=== PATIENT | male | born 1975 | race Caucasian/White ===

== ENCOUNTER 2018-02-07 17:27 | Emergency (ER) | payer OTHER ==
[~2018-02-07] VITALS: Ht 185.4 cm; Wt 70.3 kg
[~2018-02-07 17:27] MED LIST: ADVAIRDISKUS; PROVENTIL HFA6.7 G1; ZOFRAN ODT4 MG PO
[2018-02-07 20:39] LABS: ABSOLUTE NEUTROPHILS 7.6 thou/uL (1.4-8.2); BASOPHILS 0.1 % (0.0-2.0); HEMATOCRIT 43.5 % (42.0-52.0); LYMPHOCYTES 5.2 % (24.0-44.0); MCH 31.5 pg (26.0-34.0); MCHC 34.4 g/dL (28.0-37.0); MCV 91.6 fL (80.0-100.0); MONOCYTES 6.6 % (1.0-8.0); PLATELET COUNT 197 thou/uL (150-400); POLYS 88.1 % (36.0-66.0); RBC 4.75 mil/uL (4.50-6.00); RDW 12.8 % (10.5-14.5); WBC 8.6 thou/uL (4.0-11.0)
[2018-02-07] MEDS ORDERED: VENTOLIN HFA 1818 GM INH (20:44)
[2018-02-07] MEDS ORDERED: MEDROLDOSEPACK PO (20:44)
[2018-02-07 20:48] LABS: CREATININE 1.1 mg/dL (0.7-1.3)
[2018-02-07 20:50] LABS: POTASSIUM 2.9 mmol/L (3.5-5.1)
[2018-02-07 21:11] VITALS: BP 129/65
== END 2018-02-07 21:13 | disposition home or self-care (01) ==
LOC: ER 17:27
PROVIDERS: Nurse Practitioner Family
DX: J45.901 Unspecified asthma with (acute) exacerbation (principal); J10.1 Influenza due to other identified influenza virus with other respiratory manifestations; E87.6 Hypokalemia; R73.9 Hyperglycemia, unspecified